=== PATIENT | female | born 1970 | race Caucasian/White ===

== ENCOUNTER → 2018-04-05 | Outpatient (CLI) | payer BC | LOC: FIMAGING 15:20 | PROVIDERS: ATTEND Family Medicine | DX: Z12.31 Encounter for screening mammogram for malignant neoplasm of breast (principal) ==

== ENCOUNTER → 2018-05-02 | Outpatient (CLI) | payer BC | LOC: FIMAGING 09:34 | PROVIDERS: ATTEND Family Medicine | DX: N83.291 Other ovarian cyst, right side (principal); D25.1 Intramural leiomyoma of uterus ==